=== PATIENT | female | born 1990 | race American Indian/Alaskan Native ===

== ENCOUNTER 2021-01-10 14:17 | Emergency (ER) | payer SELFPAY ==
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
[2021-01-10 15:14] VITALS: BP 151/88
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
== END 2021-01-10 17:33 | disposition home or self-care (01) ==
LOC: ED 14:17
DX: S00.83XA Contusion of other part of head, initial encounter (principal); Y08.89XA Assault by other specified means, initial encounter; Y93.89 Activity, other specified; Y92.89 Other specified places as the place of occurrence of the external cause; Y99.8 Other external cause status
CPT/HCPCS: 70110; 99283

== ENCOUNTER 2021-10-14 07:53 | Emergency (ER) | payer SELFPAY ==
[2021-10-14 08:13] VITALS: BP 161/87
[2021-10-14 08:45] LABS: Hemoglobin 8.5 gm/dl (10.1-14.3); Mean Corpuscular HGB Conc 33 % (30-34); Platelet Count 335 K/mm3 (140-440); Red Blood Count 4.71 M/mm3 (3.65-5.03)
[2021-10-14 08:50] LABS: Mean Corpuscular Volume 55 fl (79-97); Red Cell Distribution Width 20.9 % (13.2-15.2)
[2021-10-14 09:15] LABS: BUN/Creatinine Ratio 15; Blood Urea Nitrogen 9 mg/dL (7-17); Calcium 9.4 mg/dL (8.4-10.2); Hemolysis Index 0
[2021-10-14 10:02] LABS: Bacteria,Urine 2+ /HPF (Negative); Mucus,Urine 3+ /HPF
[2021-10-14 10:13] LABS: Color,Urine Yellow (Yellow)
--- NOTE | 2021-10-14 10:45 | Emergency Department Report ---
ED Abdominal Pain HPI - General Chief Complaint: Abdominal Pain Stated Complaint: STOMACH PAIN/FIBROIDS PUI?: No Time Seen by Provider: 10/14/21 10:25 Source: patient Mode of arrival: Ambulatory Limitations: No Limitations - History of Present Illness Initial Comments: 31 YO COMES TO ER WITH A/C FIBROID PAIN AND IRREG VAG BLEEDING SHE HAS NOT SEEN OBGYN OR PCP AMBULATORY NO CP NO SOB NO FEVER NO CHILLS NO VAG DISCHARGE MD Complaint: abdominal pain -: Gradual, month(s) Location: diffuse Severity scale (0 -10): 8 Quality: cramping Consistency: constant Improves With: nothing Worsens With: nothing Associated Symptoms: denies other symptoms Treatments Prior to Arrival: NSAIDs - Related Data Previous Rx's Medication Instructions Recorded Last Taken Type Ibuprofen [Motrin] 800 mg PO Q8HR PRN #20 tablet 01/10/21 Unknown Rx Allergies Allergy/AdvReac Type Severity Reaction Status Date / Time No Known Allergies Allergy Verified 10/14/21 08:13 ED Review of Systems ROS: Stated complaint: STOMACH PAIN/FIBROIDS Other details as noted in HPI Comment: All other systems reviewed and negative ED Past Medical Hx - Past Medical History Previous Medical History?: Yes - Surgical History Past Surgical History?: Yes Additional Surgical History: fibroid sx 2018 - Family History Family history: no significant - Social History Smoking Status: Never Smoker Substance Use Type: Alcohol - Medications Home Medications: Home Medications Medication Instructions Recorded Confirmed Last Taken Type Ibuprofen [Motrin] 800 mg PO Q8HR PRN #20 tablet 01/10/21 Unknown Rx ED Physical Exam - General Limitations: No Limitations General appearance: alert, in no apparent distress - Head Head exam: Present: atraumatic, normocephalic - Eye Eye exam: Present: normal appearance - ENT ENT exam: Present: mucous membranes moist - Neck Neck exam: Present: normal inspection - Respiratory Respiratory exam: Present: normal lung sounds bilaterally. Absent: respiratory distress - Cardiovascular Cardiovascular Exam: Present: regular rate, normal rhythm. Absent: systolic murmur, diastolic murmur, rubs, gallop - GI/Abdominal GI/Abdominal exam: Present: soft, normal bowel sounds - Extremities Exam Extremities exam: Present: normal inspection - Back Exam Back exam: Present: normal inspection - Neurological Exam Neurological exam: Present: alert, oriented X3 - Psychiatric Psychiatric exam: Present: normal affect, normal mood - Skin Skin exam: Present: warm, dry, intact, normal color. Absent: rash ED Course Vital Signs 10/14/21 08:09 Temperature 98.4 F Pulse Rate 87 Respiratory 18 Rate Blood Pressure 161/87 [Right] O2 Sat by Pulse 100 Oximetry ED Medical Decision Making - Lab Data Result diagrams: 10/14/21 08:29 10/14/21 08:29 - Radiology Data Radiology results: report reviewed, image reviewed - Medical Decision Making Labs 10/14/21 10/14/21 10/14/21 08:29 08:29 08:29 WBC 9.6 RBC 4.71 Hgb 8.5 L Hct 26.0 L MCV 55 L MCH 18 L MCHC 33 RDW 20.9 H Plt Count 335 Sodium 140 Potassium 4.6 Chloride 102.5 Carbon Dioxide 25 Anion Gap 17 BUN 9 Creatinine 0.6 Estimated GFR > 60 BUN/Creatinine Ratio 15 Glucose 99 Calcium 9.4 HCG, Qual Negative Urine Color Urine Turbidity Specific [place] (Man) Ur Protein (Man) Ur Ketones (Man) Urine Bilirubin (Man) Urine WBC (Auto) Urine RBC (Auto) U Epithel Cells (Auto) Urine Bacteria (Auto) Urine RBC (Manual) Urine Mucus 10/14/21 Unknown WBC RBC Hgb Hct MCV MCH MCHC RDW Plt Count Sodium Potassium Chloride Carbon Dioxide Anion Gap BUN Creatinine Estimated GFR BUN/Creatinine Ratio Glucose Calcium HCG, Qual Urine Color Yellow Urine Turbidity Clear Specific [place] (Man) 1.020 Ur Protein (Man) Negative Ur Ketones (Man) 4+ Urine Bilirubin (Man) Negative Urine WBC (Auto) 1.0 Urine RBC (Auto) 9.0 U Epithel Cells (Auto) 2.0 Urine Bacteria (Auto) 2+ Urine RBC (Manual) Negative Urine Mucus 3+ Vital Signs 10/14/21 08:09 Temperature 98.4 F Pulse Rate 87 Respiratory 18 Rate Blood Pressure 161/87 [Right] O2 Sat by Pulse 100 Oximetry LABS NOTED UA NOTED PREG NEG VSS US NOTED COPY OF IMAGES GIVEN TO PT ON DC ON DC EXAM PT CO CRAMPING ONLY; NO CP. NO SOB. REFERRAL FOR TODAYS OBGYN DR TELLEZ WAS GIVEN ON DC. PT WILL CALL HER FOR FOLLOW UP CONSULTATION FOR DEFINITIVE PLAN OF CARE. UNTIL SUCH TIME PT WILL USE OVER THE COUNTER MOTRIN AND TYLENOL FOR PAIN. - Differential Diagnosis RO PREG/UTI/SYMPTOMATIC ANEMIA/FIBROIDS Critical care attestation.: If time is entered above; I have spent that time in minutes in the direct care of this critically ill patient, excluding procedure time. ED Disposition Clinical Impression: DUB (dysfunctional uterine bleeding) Uterine fibroid Qualifiers: Uterine leiomyoma location: unspecified location Qualified Code(s): D25.9 - Leiomyoma of uterus, unspecified Disposition: 01 HOME / SELF CARE / HOMELESS Is pt being admited?: No Does the pt Need Aspirin: No Condition: Stable Instructions: Uterine Fibroids, [id number], Abdominal Pain (ED) Additional Instructions: over the counter motrin or tylenol for pain follow up with obgyn referral below Referrals: BONILLA ROTH MD [Staff Physician] - 3-5 Days Forms: Work/School Release Form(ED) Time of Disposition: 12:43
--- NOTE | 2021-10-14 13:28 | Ultrasound Report ---
ULTRASOUND PELVIS INDICATION / CLINICAL INFORMATION: pain. TECHNIQUE: Transabdominal and Transvaginal. Duplex Color Doppler used: Yes. COMPARISON: None available FINDINGS: UTERUS: Present. - Appearance (if present): No significant abnormality. - Size in cm (if present): 11.1 x 10.1 x 11.1. - Endometrial Complex (if present): No significant abnormality.. Thickness in cm (if measured) = 0.15 - Mass lesions: Multiple uterine fibroids measuring up to 5.3 cm - Additional findings: None. RIGHT ADNEXA: No significant ovarian cyst or mass. Normal color Doppler blood flow. LEFT ADNEXA: Structure in the left adnexal region with a few folds and containing low level internal echoes, likely hydrosalpinx. Normal color Doppler blood flow. URINARY BLADDER: No significant abnormality. FREE FLUID: None. ADDITIONAL FINDINGS: None. IMPRESSION: 1. Probable large left hydrosalpinx. 2. Multiple uterine fibroids. Signer Name: Jesus Chao MD Signed: 10/14/2021 1:23 PM Workstation Name: [id number]
== END 2021-10-14 13:30 | disposition home or self-care (01) ==
LOC: ED 07:53
DX: N93.8 Other specified abnormal uterine and vaginal bleeding (principal); D25.9 Leiomyoma of uterus, unspecified; Z72.89 Other problems related to lifestyle; Z98.890 Other specified postprocedural states
CPT/HCPCS: 36415; 76830; 76856; 80048; 81001; 84703; 85027; 99284